=== PATIENT | male | born 1990 | race Two or more races ===

== ENCOUNTER 2021-07-03 15:15 | Emergency (ER) | payer BC ==
[~2021-07-03] VITALS: Ht 167.6 cm; Wt 77.1 kg
[2021-07-03 15:21] VITALS: BP 125/76
--- NOTE | 2021-07-03 15:24 | NUR ---
DR LIVE TALKING TO THE PATIENT
[2021-07-03] MEDS ORDERED: CIPR7.5D9 LEFT EAR (15:34)
--- NOTE | 2021-07-03 15:38 | NUR ---
Patient discharged to home in stable condition. Written and verbal after care instructions given. Patient verbalizes understanding of instruction.
[2021-07-04] MEDS ORDERED: HYDR-3972 PO (14:33)
== END 2021-07-03 15:38 | disposition home or self-care (01) ==
LOC: ER 15:19
DX: H60.92 Unspecified otitis externa, left ear (principal); Z60.2 Problems related to living alone
CPT/HCPCS: 82962-TC

== ENCOUNTER 2021-07-04 13:04 | Emergency (ER) | payer BC ==
[~2021-07-04] VITALS: Ht 167.6 cm; Wt 77.1 kg
[~2021-07-04 13:04] MED LIST: CIPR7.5D9 LEFT EAR
[2021-07-04 13:46] VITALS: BP 143/99
--- NOTE | 2021-07-04 13:51 | NUR ---
BIBS FOR C/O L EAR PAIN SINCE MONDAY. SEEN YESTERDAY STATES NO RELIEF. RATES PAIN 05/23. DENIES CHANGE IN HEARING. NO DISCHARGE NOTED. WILL CONTINUE TO MONITOR THE PATIENT.
[2021-07-04] MEDS ORDERED: HYDROCODONE/APAP 5/325MG TABLET ONE (14:33)
[2021-07-04] MEDS ORDERED: HYDR-3972 PO (14:33)
[2021-07-04] MEDS: HYDROCODONE/APAP 5/325MG TABLET PO ONE (14:36)
--- NOTE | 2021-07-04 15:24 | NUR ---
Patient discharged to home in stable condition. Written and verbal after care instructions given. Patient verbalizes understanding of instruction.
== END 2021-07-04 15:24 | disposition home or self-care (01) ==
LOC: ER 13:05
DX: H60.92 Unspecified otitis externa, left ear (principal); Z60.2 Problems related to living alone